=== PATIENT | male | born 1975 | race Caucasian/White ===

== ENCOUNTER 2016-08-08 21:08 | Inpatient (IN) | payer BC ==
[~2016-08-08] VITALS: Ht 198.1 cm; Wt 118.8 kg
--- NOTE | 2016-08-08 21:20 | NUR ---
PT AMBULATORY TO ER BED 11 C/O LOWER ABDOMINAL PAIN X 5 DAYS. PT STATES NO BMX 5 DAYS. TAKES NORCO FOR BACK PAIN. PT STATES PAIN STARTED IN HIS EPIGASTRIC AREA AND PROGRESSED TO LOWER QUADRANT ABDOMEN. GOWNED AND PLACED ON MONITOR. AWAITING MD OSULLIVAN.
--- NOTE | 2016-08-08 22:09 | NUR ---
DR FELDMAN AT BEDSIDE FOR EVAL.
--- NOTE | 2016-08-08 22:26 | NUR ---
U/S TECH AT BEDSIDE FOR GALL BLADDER ULTRASOUND.
[2016-08-08] MEDS ORDERED: ONDANSETRON HCL/PF 4 MG/2 ML VIAL ONE (22:27)
[2016-08-08] MEDS ORDERED: HYDROMORPHONE INJ 2 MG/ML DISP.SYRIN ONE (22:27)
[2016-08-08] MEDS ORDERED: PANTOPRAZOLE 40 MG VIAL ONE (22:27)
[2016-08-08] MEDS ORDERED: PANTOPRAZOLE 40 MG VIAL IV ONE (22:30)
[2016-08-08] MEDS ORDERED: ONDANSETRON HCL/PF 4 MG/2 ML VIAL IVP ONE (22:30)
[2016-08-08] MEDS: HYDROMORPHONE HCL 2 MG TABLET PO PRN (22:37)
[2016-08-08 22:43] LABS: BASOPHILS % (AUTO) 0.1 % (0.0-2.0); HEMATOCRIT 41 % (39-51); HEMOGLOBIN 14.1 g/dL (13.5-17.5); LYMPHOCYTES # (AUTO) 0.5 /CMM (0.8-4.8); LYMPHOCYTES % (AUTO) 3.4 % (20.0-44.0); MEAN CORPUSCULAR HEMOGLOBIN 33 PG (26.0-33.0); MEAN CORPUSCULAR HGB CONC 35 g/dl (31.0-36.0); MEAN CORPUSCULAR VOLUME 96 fL (80-96); MONOCYTES % (AUTO) 6.6 % (2.0-12.0); NEUTROPHILS # (AUTO) 13.1 /CMM (1.8-8.9); NEUTROPHILS % (AUTO) 89.9 % (43.0-81.0); PLATELET COUNT (AUTO) 241 /CMM (150-450); RDW COEFFICIENT OF VARIATION 12.7 (11.5-15.0); RED BLOOD CELL COUNT(AUTO) 4.24 MIL/uL (4.5-6.0); WHITE BLOOD COUNT (AUTO) 14.6 K/uL (4.3-11.0)
[2016-08-08 22:58] LABS: CALCIUM, SERUM 9.6 mg/dL (8.5-10.1); CREATININE 0.9 mg/dL (0.6-1.3); POTASSIUM 4.6 mmol/L (3.5-5.1)
[2016-08-08 23:04] LABS: ALBUMIN 3.6 g/dL (3.4-5.0); BILIRUBIN,DIRECT 0.2 mg/dL (0.0-0.2); TOTAL PROTEIN, SERUM 8.5 g/dL (6.4-8.2)
--- NOTE | 2016-08-08 23:13 | NUR ---
PT TO RADIOLOGY FOR ABDOMINAL CT SCAN VIA [facility].
[2016-08-09] MEDS ORDERED: HYDROMORPHONE HCL 2 MG TABLET PO PRN
[2016-08-09] MEDS ORDERED: HYDROMORPHONE HCL 2 MG TABLET ONE (00:04)
[2016-08-09] MEDS: HYDROMORPHONE HCL 2 MG TABLET PO PRN (00:16)
--- NOTE | 2016-08-09 00:16 | NUR ---
PT STATES PAIN IS GETTING WORST AGAIN. DR FELDMAN MADE AWARE. MEDICATED ORDERED. SEE EMAR.
[2016-08-09] MEDS ORDERED: HYDROMORPHONE INJ 2 MG/ML DISP.SYRIN IV ONE (00:30)
--- NOTE | 2016-08-09 00:31 | NUR ---
REPORT GIVEN TO CHARGE NURSE DARYL FOR ANTONIO.
--- NOTE | 2016-08-09 00:35 | NUR ---
DR. FELDMAN DISCUSSING CASE WITH DR. ARCHER ON THE PHONE
--- NOTE | 2016-08-09 00:41 | NUR ---
DR. CAYDEN LECHUGA PAGED.
[2016-08-09] MEDS ORDERED: IV SET PRIMARY PUMP SET 1 EA INFUS.SET MC ONE (00:57)
[2016-08-09] MEDS ORDERED: SECONDARY IV SET 1 EA INFUS.SET MC ONE ×4 (00:57→23:22)
[2016-08-09] MEDS ORDERED: IV NS 0.9% 1,000 ML ONE (00:57)
--- NOTE | 2016-08-09 00:57 | NUR ---
REPORT TO SHARON JUSTICE PT AWAITING TRANSFER TO FLOOR.
[2016-08-09] MEDS ORDERED: MAG HYDROX/AL HYDROX/SIMETH 30 ML UDC PO PRN (01:00)
[2016-08-09] MEDS ORDERED: Z GUARD REMEDY 2 OZ OINT TP PRN (01:00)
[2016-08-09] MEDS ORDERED: HYDROMORPHONE 1 MG/1 ML DISP.SYRIN IV PRN (01:00)
[2016-08-09] MEDS ORDERED: MORPHINE SULFATE INJ 2 MG/ML DISP.SYRIN IV PRN (01:00)
[2016-08-09] MEDS ORDERED: MAGNESIUM HYDROXIDE 30 ML UDC PO PRN (01:00)
[2016-08-09] MEDS ORDERED: ONDANSETRON HCL/PF 4 MG/2 ML VIAL IVP PRN (01:00)
[2016-08-09] MEDS ORDERED: ZOLPIDEM TARTRATE 5 MG TABLET PO PRN (01:00)
[2016-08-09] MEDS ORDERED: HYDROCODONE/APAP 5/325MG 1 EACH TABLET PO PRN (01:00)
--- NOTE | 2016-08-09 01:20 | NUR ---
MS RN NOTE RECEIVED PATIENT FROM ER VIA GURNEY, PATIENT IS ALERT AND ORIENTEDX4, DENIES RESPIRATORY DISTRESS AND COMPLAINS OF RIGHT LOWER ABDOMINAL PAIN 9/10. IV ON LEFT AC 20G IS PATENT AND INTACT, WILL CONNECT THE FLUID. BOWEL SOUND IS HYPOACTIVE, NO EDEMA, NO SKIN PROBLEMS NOTED. SRX2, BED IN LOW POSITION, CALL LIGHT WITHIN REACH, WILL CONTINUE TO MONITOR PATIENT.
[2016-08-09] MEDS: IV NS 0.9% 1,000 ML IV PRN ×2 (01:27→23:19)
[2016-08-09 01:30] VITALS: BP 113/68
[2016-08-09] MEDS ORDERED: PIPERACILLIN /TAZOBACTAM 3.375 G in IV D5W 50 ML IV ONE (01:30)
[2016-08-09] MEDS ORDERED: PIPERACILLIN /TAZOBACTAM 3.375 G VIAL IV ONE ×2 (01:30→05:15)
[2016-08-09] MEDS ORDERED: IV D5W 50 ML IV ONE ×3 (01:31→23:22)
--- NOTE | 2016-08-09 01:40 | NUR ---
MS RN NOTE ER CALLED AND STATED THAT PATIENT DID NOT GET INITIAL IV ZOSYN 3.375G DOSE AT ER, PUT ONE TIME ORDER, AND WILL CONTINUE TO F/U WITH SCHEDULED ZOSYN FROM 0600.
[2016-08-09] MEDS ORDERED: MORPHINE SULFATE INJ 2 MG/ML DISP.SYRIN ONE (01:42)
--- NOTE | 2016-08-09 03:15 | NUR ---
MS RN NOTE RECHECKED PATIENT'S TEMP: ORAL 100.8 INITIATED COOLING MEASURE, PROVIDED ICE PACK AND COLD TOWEL ON HIS FOREHEAD.
[2016-08-09] MEDS ORDERED: ACETAMINOPHEN 325 MG TABLET ONE (04:25)
--- NOTE | 2016-08-09 04:25 | NUR ---
MS RN NOTE PATIENT'S RECHECK ORAL TEMP WAS 102.F, PT IS CURRENTLY ON NPO STATUS. CONTACTED MD. LECHUGA AND GOT AN ORDER OF BLOOD CX AND STATED THAT PO TYLENOL 650MG IS OKAY TO TAKE. ORDERS PUT IN AND WILL CARRY OUT. WILL CONTINUE TO MONITOR HIS TEMPERATURE. Addendum: 08/09/16 at 0441 by SHARON FROST RN NOTIFIED THE LAB ABOUT STAT BLOOD CX ORDER WELL. SPOKE WITH FELICIA.
[2016-08-09] MEDS: ACETAMINOPHEN 325 MG TABLET PO PRN ×2 (04:29→20:22)
[2016-08-09] MEDS ORDERED: PIPERACILLIN /TAZOBACTAM 3.375 G in IV D5W 50 ML IV SCH (06:00)
--- NOTE | 2016-08-09 06:30 | NUR ---
MS RN NOTE PATIENT IS RESTING IN BED COMFORTABLY, NO S/S OF RESPIRATORY DISTRESS AND COMPLAINS OF MILD ABDOMINAL PAIN, BUT DID NOT REQUEST FOR PAIN MED. IV ON LEFT FA IS PATENT AND INTACT, NS IS RUNNING. WILL ENDORSE TO DAY SHIFT FOR ANTONIO.
--- NOTE | 2016-08-09 07:12 | NUR ---
MS RN OPENING NOTE PATIENT IS ALERT AND ORIENTED x4. PATIENT STATES 8/10 PAIN IN ABDOMINAL AREA. PAIN MEDICATION GIVEN. NO SOB OR DISTRESS NOTED. CALL LIGHT WITHIN REACH. SAFETY MEASURES IMPLEMENTED. IV INTACT AND PATENT NO REDNESS OR SWELLING NOTED. NPO CURRENTLY, AWAITING PHYSICIAN CONSULT. WILL CONTINUE TO MONITOR
[2016-08-09 08:00] VITALS: BP 132/87
[2016-08-09] MEDS: PANTOPRAZOLE 40 MG VIAL IV SCH (08:22)
[2016-08-09] MEDS ORDERED: HYDR-552 PO (08:33)
[2016-08-09 08:38] LABS: HEMATOCRIT 39 % (39-51); HEMOGLOBIN 13.5 g/dL (13.5-17.5); LYMPHOCYTES # (AUTO) 0.7 /CMM (0.8-4.8); LYMPHOCYTES % (AUTO) 4.4 % (20.0-44.0); MEAN CORPUSCULAR HEMOGLOBIN 34 PG (26.0-33.0); MEAN CORPUSCULAR HGB CONC 35 g/dl (31.0-36.0); MEAN CORPUSCULAR VOLUME 96 fL (80-96); MONOCYTES # (AUTO) 1.2 /CMM (0.1-1.30); MONOCYTES % (AUTO) 7.1 % (2.0-12.0); NEUTROPHILS # (AUTO) 14.7 /CMM (1.8-8.9); NEUTROPHILS % (AUTO) 88.5 % (43.0-81.0); PLATELET COUNT (AUTO) 239 /CMM (150-450); RDW COEFFICIENT OF VARIATION 12.9 (11.5-15.0); RED BLOOD CELL COUNT(AUTO) 4.02 MIL/uL (4.5-6.0); WHITE BLOOD COUNT (AUTO) 16.6 K/uL (4.3-11.0)
[2016-08-09 08:45] LABS: CALCIUM, SERUM 8.9 mg/dL (8.5-10.1); CREATININE 0.8 mg/dL (0.6-1.3); POTASSIUM 4.3 mmol/L (3.5-5.1)
[2016-08-09] MEDS ORDERED: BUPIVACAINE MPF 0.5% W/EPI INJ 30 ML VIAL ONE (09:39)
--- NOTE | 2016-08-09 09:42 | NUR ---
MS RN NOTE RECEIVED PHONE CALL BY DR. BELLA TO ORDER STAT ULTRASOUND OF THE RIGHT LOWER QUADRANT. ALSO RECEIVED ORDERS FOR SURGICAL CONSENT FOR LAPROSCOPIC APPENDECTOMY, POSSIBLE OPEN. OBTAINED CONSENTS, IN CHART. PATIENT IS STABLE AT THIS TIME. VITALS ARE STABLE.
[2016-08-09] MEDS ORDERED: MIDAZOLAM HCL 2 MG/2ML VIAL ONE (09:53)
[2016-08-09] MEDS ORDERED: FENTANYL PF 100MCG/2ML AMPUL ONE ×2 (09:53→10:36)
[2016-08-09] MEDS ORDERED: ROCURONIUM BROMIDE 50 MG/5 ML ONE ×2 (09:53→10:36)
[2016-08-09] MEDS ORDERED: METRONIDAZOLE 500MG/ NS 100ML 100 ML IV ONE (10:56)
--- NOTE | 2016-08-09 11:43 | NUR ---
MS RN NOTE PATIENT IS BACK FROM SURGERY AND WITH ORDERS FOR CLEAR LIQUID DIET, DISCONTINUE ZOSYN, START ANCEF AND FLAGYL. CBC AND BMP IN AM. PATIENT IS STABLE. VITALS ARE STABLE. ALL ORDERS NOTED AND CARRIED OUT. WILL CONTINUE TO MONITOR
[2016-08-09] MEDS: MORPHINE SULFATE INJ 2 MG/ML DISP.SYRIN IV PRN ×3 (11:56→21:00)
[2016-08-09] MEDS ORDERED: oxyCODONE/APAP (5/325 MG) 1 UDTAB TABLET PO PRN ×2 (12:00)
[2016-08-09] MEDS ORDERED: METOCLOPRAMIDE HCL 10 MG/2 ML VIAL IV PRN (12:00)
[2016-08-09] MEDS ORDERED: ANESTHESIA TRAY IN PYXIS 1 EA TRAY MC ONE (12:57)
[2016-08-09] MEDS: MORPHINE SULFATE INJ 4 MG/ML DISP.SYRIN IV PRN (15:36)
[2016-08-09 16:00] VITALS: BP 133/93
[2016-08-09] MEDS ORDERED: MORPHINE SULFATE INJ 4 MG/ML DISP.SYRIN IV ONE (17:00)
[2016-08-09] MEDS ORDERED: IV NS 0.9% 1,000 ML BAG IV ONE (17:00)
[2016-08-09] MEDS ORDERED: IV NS 0.9% 1,000 ML IV ONE (17:00)
[2016-08-09] MEDS ORDERED: ANCEF 1 GM/50 ML D5W IV SCH ×2 (18:00)
--- NOTE | 2016-08-09 18:29 | NUR ---
MS RN CLOSING NOTE PATIENT IS ALERT AND ORIENTED x4. NO PAIN AT THIS TIME. NO SOB OR DISTRESS NOTED. CALL LIGHT WITHIN REACH AT ALL TIMES. SAFETY MEASURES IMPLEMENTED. IV INTACT AND PATENT NO REDNESS OR SWELLING NOTED. ABLE TO COMMUNICATE NEEDS. POSSIBLE DISCHARGE IN THE MORNING. S/P LAPROSCOPIC APPENDECTOMY, MICHAEL SÁNCHEZ BULB DRAINAGE. WILL ENDORSE TO KILN PUSHER NURSE
--- NOTE | 2016-08-09 19:30 | NUR ---
MS RN NOTES RECEIVED ON BED A/O X4,BREATHING REGULAR,NOT IN ANY FORM OF DISTRESS. S/P APPENDECTOMY TODAY.DRESSING INTACT AND DRY..MICHAEL DRAIN IN PLACE DRAINING SERO- SANGUINOUS OUTPUT.PRESENT IVF INFUSING ON LEFT AC,SITE PATENT.PAIN BEARABLE AT THE MOMENT.CALL LIGHT IN REACH,NEEDS ANTICIPATED.
[2016-08-09 20:00] VITALS: BP 121/87
--- NOTE | 2016-08-09 20:22 | NUR ---
MS RN NOTES C/O ORAL TEMP 101.3,MEDICATED WITH TYLENOL 650MG PO ORDERED.BLOOD CULTURE ALREADY DONE AWAITING FOR RESULT.
[2016-08-09] MEDS: METRONIDAZOLE 500MG/ NS 100ML 500 MG in PREMIX 1 EA IV SCH (20:54)
--- NOTE | 2016-08-09 21:00 | NUR ---
MS RN NOTES PAIN MANAGEMENT C/O ABDOMINAL PAIN,MEDICATED WITH MORPHINE 2MG IVP FOR PAIN SCALE 7/10.WILL MONITOR FOR RELIEF
--- NOTE | 2016-08-09 21:00 | NUR ---
MS RN NOTES DUE FLAGYL 1GM IVPB HUNG
[2016-08-09 21:26] VITALS: BP 121/87
--- NOTE | 2016-08-09 22:10 | NUR ---
MS RN NOTES LATEST ORAL TEMP 99.0
--- NOTE | 2016-08-09 22:12 | NUR ---
MS RN NOTES C/O INSOMNIA, AMBIEN 5MG PO GIVEN PER PATIENT REQUEST.
[2016-08-09] MEDS ORDERED: PIPERACILLIN /TAZOBACTAM 2.25 G VIAL IV ONE (23:22)
--- NOTE | 2016-08-10 | NUR ---
MS RN NOTES ANCEF WAS D/C BY ZAIDA SALINAS.STARTED ON ZOSYN 4.5 GM IVPB Q 6 ORDERED.
[2016-08-10] MEDS: PIPERACILLIN /TAZOBACTAM 4.5 G in IV D5W 50 ML IV SCH ×2 (00:04→05:58)
[2016-08-10] MEDS: MORPHINE SULFATE INJ 2 MG/ML DISP.SYRIN IV PRN ×6 (00:32→22:45)
--- NOTE | 2016-08-10 00:32 | NUR ---
MS RN NOTES PAIN MANAGEMENT C/O LOWER ABDOMINAL PAIN POST AMBULATION TO THE TOILET.MEDICATED WITH MORPHINE 2MG IVP ORDERED FOR PAIN SCALE 6/10.INCENTIVE SPIROMETRY STARTED WHILE AWAKE.
--- NOTE | 2016-08-10 03:11 | NUR ---
MS RN NOTES AWAKE,C/O ABDOMINAL PAIN 6-7/10 ON PAIN SCALE.MEDICATED WITH MORPHINE 2MG IVP ORDERED FOR MODERATE PAIN.WILL MONITOR FOR RELIEF.
--- NOTE | 2016-08-10 04:30 | NUR ---
MS RN NOTES AMBULATE TO THE TOILET
[2016-08-10] MEDS ORDERED: IV D5W 50 ML IV ONE (04:51)
[2016-08-10] MEDS: METRONIDAZOLE 500MG/ NS 100ML 500 MG in PREMIX 1 EA IV SCH ×3 (04:57→20:42)
[2016-08-10] MEDS ORDERED: PIPERACILLIN /TAZOBACTAM 2.25 G VIAL IV ONE (04:59)
--- NOTE | 2016-08-10 05:00 | NUR ---
MS RN NOTES DUE FLAGYL 500MG IVPB HUNG
--- NOTE | 2016-08-10 05:02 | NUR ---
MS RN NOTES PAIN MANAGEMENT HAVING PAIN 7/10 ON PAIN SCALE.MEDICATED WITH MORPHINE 2MG IVP ORDERED.
--- NOTE | 2016-08-10 06:16 | NUR ---
MS RN CLOSING NOTES S/P APPENDECTOMY YESTERDAY,ANESTHESIA WEARING OFF,HAVE A PAIN LIKE EVERY 2 HOURS, MANAGE WITH MORPHINE 2MG IVP ORDERED FOR MODERATE PAIN.MICHAEL DRAINS 15ML SANGUINOUS OUTPUT.HAD BM X 1,BRP X 4.LATEST TEMP 99.1.IN NO ACUTE DISTRESS.WILL ENDORSE TO DAY NURSE FOR ANTONIO.
[2016-08-10 06:57] LABS: EOSINOPHILS % (AUTO) 0.1 % (0.0-6.0); HEMATOCRIT 37 % (39-51); LYMPHOCYTES # (AUTO) 0.8 /CMM (0.8-4.8); LYMPHOCYTES % (AUTO) 6.2 % (20.0-44.0); MEAN CORPUSCULAR HEMOGLOBIN 33 PG (26.0-33.0); MEAN CORPUSCULAR HGB CONC 35 g/dl (31.0-36.0); MEAN CORPUSCULAR VOLUME 96 fL (80-96); MONOCYTES % (AUTO) 7.6 % (2.0-12.0); NEUTROPHILS # (AUTO) 11.1 /CMM (1.8-8.9); NEUTROPHILS % (AUTO) 86.1 % (43.0-81.0); PLATELET COUNT (AUTO) 291 /CMM (150-450); RDW COEFFICIENT OF VARIATION 12.9 (11.5-15.0); RED BLOOD CELL COUNT(AUTO) 3.89 MIL/uL (4.5-6.0); WHITE BLOOD COUNT (AUTO) 12.9 K/uL (4.3-11.0)
[2016-08-10 07:22] LABS: CALCIUM, SERUM 9.3 mg/dL (8.5-10.1); CREATININE 0.9 mg/dL (0.6-1.3); MAGNESIUM 2.2 mg/dL (1.8-2.4); PHOSPHORUS 2.5 mg/dL (2.5-4.9)
--- NOTE | 2016-08-10 07:30 | NUR ---
RN MS NOTES PATIENT IN BED, ALERT AND ORIENTED, WITH FAMILY AT BEDSIDE COMPLAINING OF ABDOMINAL PAIN 10/06, MORPHINE ADMINISTERED ORDERED, MICHAEL DRAIN CHECKED WITH < 5CC OF SANGUINOUS OUTPUT, NEEDS ATTENDED AND MET, CALL LIGHT WITHIN REACH, WILL CONTINUE TO MONITOR.
[2016-08-10 08:00] VITALS: BP 123/81
[2016-08-10] MEDS: PANTOPRAZOLE 40 MG VIAL IV SCH (08:02)
[2016-08-10] MEDS: MORPHINE SULFATE INJ 4 MG/ML DISP.SYRIN IV PRN ×2 (09:46→11:57)
[2016-08-10] MEDS: PIPERACILLIN /TAZOBACTAM 3.375 G in IV D5W 50 ML IV SCH ×3 (11:32→23:49)
--- NOTE | 2016-08-10 12:44 | NUR ---
RN MS NOTES PATIENT SEEN BY DR. ZAIDA HENSLEY, RECEIVED NEW ORDER TO D/C MORPHINE 4MG AND REPLACE WITH DILAUDID 1MG Q3H PRN FOR SEVERE PAIN, ORDER NOTED AND CARRIED OUT, PER MD, PATIENT WILL BE MONITORED FOR ANOTHER DAY AND MAY BE DISCHARGED IN AM TOMORROW.
[2016-08-10] MEDS: HYDROMORPHONE 1 MG/1 ML DISP.SYRIN IV PRN ×3 (13:01→18:44)
--- NOTE | 2016-08-10 15:35 | NUR ---
RN MS NOTES APPENDIX ABSCESS RESULT RELAYED TO DR. ZAIDA HENSLEY WITH NO NEW ORDER AT THIS TIME.
[2016-08-10 16:00] VITALS: BP 127/79
[2016-08-10] MEDS: IV NS 0.9% 1,000 ML IV PRN (17:23)
--- NOTE | 2016-08-10 18:39 | NUR ---
RN MS NOTES PATIENT SEEN BY DR. BELLA WITH NEW ORDER FOR REGULAR DIET STARTING TOMORROW, MICHAEL DRAIN EMPTIED WITH OUTPUT OF 10CC, SEROUS FLUID WITH ORANGE COLOR, PATIENT COMPLAINING OF PAIN AND REQUESTING FOR DILAUDID 1MG FOR PAIN MANAGEMENT, ALL NEEDS ATTENDED, NO S/SX OF ANY DISTRESS AT THIS TIME, CALL LIGHT WITHIN REACH, WILL ENDORSE TO CIRCULAR SAWYER HELPER FOR ANTONIO.
--- NOTE | 2016-08-10 19:00 | NUR ---
MS RN NOTES ON BED A/O X4,PAIN BEARABLE AT THE MOMENT,MICHAEL IN PLACE,NO OUTPUT NOTED.REMAINS ON IVF NS 125ML/HR RATE,SITE PATENT ON LEFT AC.ON REGULAR DIET TODAY.AMBULATORY. CALL ORONA AT BEDSIDE FOR NEEDS AND ASSISTANCE.
[2016-08-10 20:00] VITALS: BP 139/93
--- NOTE | 2016-08-10 20:44 | NUR ---
MS RN NOTES PAIN MANAGEMENT C/O ABDOMINAL PAIN 7/10 ON PAIN SCALE,MEDICATED WITH MORPHINE 2MG IVP ORDERED FOR MODERATE PAIN.PATIENT PREFFERED MORPHINE IV FOR PAIN MANAGEMENT THIS TIME
--- NOTE | 2016-08-10 22:30 | NUR ---
MS RN NOTES AMBULATE TO THE TOILET WITH STEADY GAIT. C/O PAIN AFTER USING THE TOILET
--- NOTE | 2016-08-10 22:45 | NUR ---
MS RN NOTES PAIN MANAGEMENT STILL IN PAIN 6/10 ON PAIN SCALE,MORPHINE 2MG IVP GIVEN PER PATIENT REQUEST.BREATHING NON LABORED.
--- NOTE | 2016-08-11 00:45 | NUR ---
MS RN NOTES AWAKE,AMBULATE TO THE RESTROOM
[2016-08-11] MEDS: MORPHINE SULFATE INJ 2 MG/ML DISP.SYRIN IV PRN ×3 (00:54→07:08)
--- NOTE | 2016-08-11 00:54 | NUR ---
MS RN NOTES C/O ABDOMINAL PAIN POST AMBULATION TO THE TOILET,MEDICATED WITH MORPHINE 2MG IVP,REFUSED DILAUDID.
--- NOTE | 2016-08-11 03:00 | NUR ---
MS RN NOTES SOUND ASLEEP,KEPT WARM AND COMFORTABLE.
[2016-08-11] MEDS: METRONIDAZOLE 500MG/ NS 100ML 500 MG in PREMIX 1 EA IV SCH ×2 (04:58→12:26)
--- NOTE | 2016-08-11 05:00 | NUR ---
MS RN NOTES PAIN MANAGEMENT C/O ABDOMINAL PAIN 6/10 ON PAIN SCALE,MORPHINE 2MG IVP GIVEN
--- NOTE | 2016-08-11 06:05 | NUR ---
MS RN NOTES A/O X4,AMBULATORY,MICHAEL DRAINS 7.5 ML,PAIN IMPROVING FROM MODERATE TO MILD.IN NO ACUTE DISTRESS.WILL ENDORSE TO DAY NURSE FOR ANTONIO.
[2016-08-11] MEDS: PIPERACILLIN /TAZOBACTAM 3.375 G in IV D5W 50 ML IV SCH (06:10)
[2016-08-11 06:37] LABS: BASOPHILS % (AUTO) 0.1 % (0.0-2.0); EOSINOPHILS # (AUTO) 0.1 /CMM (0.0-0.7); EOSINOPHILS % (AUTO) 0.9 % (0.0-6.0); HEMATOCRIT 36 % (39-51); HEMOGLOBIN 12.8 g/dL (13.5-17.5); LYMPHOCYTES # (AUTO) 1.3 /CMM (0.8-4.8); LYMPHOCYTES % (AUTO) 8.8 % (20.0-44.0); MEAN CORPUSCULAR HEMOGLOBIN 34 PG (26.0-33.0); MEAN CORPUSCULAR HGB CONC 35 g/dl (31.0-36.0); MEAN CORPUSCULAR VOLUME 97 fL (80-96); MONOCYTES # (AUTO) 1.2 /CMM (0.1-1.30); MONOCYTES % (AUTO) 7.7 % (2.0-12.0); NEUTROPHILS # (AUTO) 12.3 /CMM (1.8-8.9); NEUTROPHILS % (AUTO) 82.5 % (43.0-81.0); PLATELET COUNT (AUTO) 334 /CMM (150-450); RDW COEFFICIENT OF VARIATION 12.7 (11.5-15.0); RED BLOOD CELL COUNT(AUTO) 3.77 MIL/uL (4.5-6.0); WHITE BLOOD COUNT (AUTO) 14.9 K/uL (4.3-11.0)
--- NOTE | 2016-08-11 07:07 | NUR ---
MS RN NOTES PAIN MANAGEMENT C/O LOWER ABDOMINAL PAIN 6/10 ON PAIN SCALE, MEDICATED WITH MORPHINE 2MG IVP ORDERED,AND PER PATIENT REQUEST.REFUSED DILAUDID IV.
[2016-08-11 07:10] LABS: CALCIUM, SERUM 9.1 mg/dL (8.5-10.1); CREATININE 0.8 mg/dL (0.6-1.3); PHOSPHORUS 3.2 mg/dL (2.5-4.9); POTASSIUM 3.5 mmol/L (3.5-5.1)
--- NOTE | 2016-08-11 07:30 | NUR ---
RN MS NOTES PATIENT ALERT AND ORIENTED, NO COMPLAINT OF PAIN AT THIS TIME, NO S/SX OF ANY DISTRESS, MICHAEL EMPTY, ENSURE COMFORT AND SAFETY, NEEDS ATTENDED, FAMILY AT BEDSIDE, CALL LIGHT WITHIN REACH, WILL CONTINUE TO MONITOR.
[2016-08-11 08:00] VITALS: BP 149/93
--- NOTE | 2016-08-11 09:15 | NUR ---
RN MS NOTES PATIENT SEEN AND EXAMINED BY DR. ZAIDA HENSLEY, RECEIVED NEW ORDERS, ORDERS NOTED AND CARRIED OUT. AWAITING FOR ID CONSULT.
[2016-08-11] MEDS: HYDROMORPHONE 1 MG/1 ML DISP.SYRIN IV PRN ×4 (09:47→15:52)
[2016-08-11] MEDS: PANTOPRAZOLE 40 MG VIAL IV SCH (09:47)
[2016-08-11] MEDS ORDERED: CEFTRIAXONE 2 G in IV D5W 100 ML IV SCH (10:00)
--- NOTE | 2016-08-11 11:00 | NUR ---
RN MS NOTES PATIENT SEEN BY DR. BELLA, REMOVED MICHAEL DRAIN, NO BLEEDING NOTED, COVERED WITH GAUZE AND TAPE, ALL DUE MEDS GIVEN, CALL LIGHT WITHIN REACH, WILL CONTINUE TO MONITOR.
[2016-08-11] MEDS ORDERED: SECONDARY IV SET 1 EA INFUS.SET MC ONE (13:15)
--- NOTE | 2016-08-11 14:20 | NUR ---
RECYCLABLE MATERIALS SORTER NOTES PATIENT LEFT THE FACILITY IN STABLE CONDITION, NO DISTRESS, ACCOMPANIED BY . Addendum: 08/11/16 at 1654 by MARTHA MILIAN RN CORRECTION: WRONG TIME DOCUMENTED PATIENT LEFT AT 1620.
[2016-08-11] MEDS ORDERED: LEVO500T15 PO (15:12)
[2016-08-11] MEDS ORDERED: METR500T PO (15:12)
[2016-08-11] MEDS ORDERED: OXYC10TA49 PO (15:12)
[2016-08-11 16:00] VITALS: BP 136/88
--- NOTE | 2016-08-11 16:04 | NUR ---
RN MS NOTES RECEIVED DISCHARGE ORDER FROM DR. HENSLEY, ORDER NOTED AND CARRIED OUT, PATIENT WAS ALSO SEEN BY [facility] [employer] [facility] AND RECOMMENDED FOR PATIENT TO STAY ONE MORE DAY, BUT PATIENT REFUSES. DISCHARGE INSTRUCTIONS PROVIDED AND VERBALIZED UNDERSTANDING, [facility] CONFIRMED WITH [facility] WENT THROUGH, PATIENT ASKED FOR DILAUDID PRIOR TO DISCHARGE FOR PAIN MANAGEMENT, PIV REMOVED, SKIN ASSESSMENT COMPLETED, PHOTOS TAKEN OF SURGICAL INCISIONS WITH HARPAL AND INCISION FROM PREVIOUS MICHAEL DRAIN, PATIENT IS IN STABLE CONDITION, WILL LEAVE IN 30 MINUTES VIA PRIVATE CAR, ACCOMPANIED BY .
== END 2016-08-11 16:20 | disposition home or self-care (01) | DRG 853 ==
LOC: ER 21:14 → MEDSG2 08-09 00:52
PROVIDERS: ADMIT Family Medicine; ATTEND Family Medicine
PROC: 0DTJ4ZZ Resection of Appendix, Percutaneous Endoscopic Approach (ICD-10-PCS; principal; 2016-08-09 09:50)
DX: A41.9 Sepsis, unspecified organism (principal); K35.3 Acute appendicitis with localized peritonitis; E87.1 Hypo-osmolality and hyponatremia; R18.8 Other ascites
CPT/HCPCS: 36415; 76705-TC; 80048-TC; 80076-TC; 83690-TC; 83735-TC; 84100-TC; 85025-TC; 87040-TC; 87070-TC; 87075-TC; 87081-TC; 87186-TC; 88304-TC; 88305-TC; A4216; A4606; C9113; J0690; J0696; J1100; J1170; J2250; J2270; J2405; J2543; J2704; J2765; J3010; J3490; J7030; J7060; Z7610